=== PATIENT | female | born 1970 | race Caucasian/White ===

== ENCOUNTER 2016-12-01 14:27 | Emergency (ER) | payer MEDICARE, OTHER ==
[~2016-12-01 14:27] MED LIST: COREG 3.125M3.125 MG PO; LANTUS100 UNIT/1 SQ; LEVOTHYROXINE75 MCG PO; LIPITOR TAB 2020 MG PO; NORVASC 5 MG TAB5 MG PO; NOVOLOG 10100 UNITS/ SQ; OMEPRAZOLE20 M1 PO
[2016-12-01 16:21] LABS: RED BLOOD COUNT 3.62 M/UL (4.00-5.10); WHITE BLOOD COUNT 12.3 K/UL (4.5-11.0)
[2017-05-26] MEDS ORDERED: SENNA8.6 MG PO (11:03)
[2017-05-26] MEDS ORDERED: FERROUS SULFAT325 M2 PO (11:03)
[2017-05-26] MEDS ORDERED: ZANTAC 150 MG150 MG PO (11:06)
[2017-05-26] MEDS ORDERED: ZOFRAN4 MG PO (11:06)
[2017-05-26] MEDS ORDERED: ASPIRIN CHEWABL81 MG PO (11:07)
[2017-05-26] MEDS ORDERED: RENVELA800 MG PO (11:07)
[2017-05-26] MEDS ORDERED: TUMS/TITRALAC500 MG PO (11:08)
[2017-05-26] MEDS ORDERED: ATIVAN0.5 MG PO (11:09)
[2017-05-26] MEDS ORDERED: LORTAB 5-325 M1 EACH PO (11:10)
[2017-05-26] MEDS ORDERED: CLARITIN10 M2 PO (11:10)
[2017-05-26] MEDS ORDERED: MONTELUKAST SOD10 MG PO (11:12)
[2017-05-27] MEDS ORDERED: PROCRIT10000 UNIT INJ (14:32)
[2017-05-27] MEDS ORDERED: EMLA 30 GRAM TUB1 EA EXT (14:37)
== END 2016-12-01 17:45 | disposition home or self-care (01) ==
LOC: ER1 14:27
PROVIDERS: Physician Assistant
DX: I95.1 Orthostatic hypotension (principal); E11.22 Type 2 diabetes mellitus with diabetic chronic kidney disease; E07.9 Disorder of thyroid, unspecified; N18.9 Chronic kidney disease, unspecified; Z99.2 Dependence on renal dialysis; Z79.4 Long term (current) use of insulin; Z79.891 Long term (current) use of opiate analgesic; Z79.899 Other long term (current) drug therapy
CPT/HCPCS: 36415; 70450; 80053; 84484; 85025; 93005; 99285

== ENCOUNTER 2020-09-20 17:54 | Inpatient (IN) | payer MEDICARE, OTHER ==
[~2020-09-20] VITALS: Ht 157.5 cm; Wt 86.2 kg
[~2020-09-20 17:54] MED LIST changes: +AMOXICILLIN500 MG PO; +ASPIRIN CHEWABL81 MG PO; +ATIVAN0.5 MG PO; +CATAPRES0.3 MG PO; +CEFUROXIME500 MG PO; +CLARITIN10 M2 PO; +COZAAR50 MG PO; +EMLA 30 GRAM TUB1 EA EXT; +FERROUS SULFAT325 M2 PO; +LORTAB 5-325 M1 EACH PO; +MONTELUKAST SOD10 MG PO; +PRINIVIL20 MG PO; +PROCRIT10000 UNIT INJ; +RENVELA800 MG PO; +SENNA8.6 MG PO; +TRAZODONE HCL50 MG PO; +TUMS/TITRALAC500 MG PO; +ZANTAC 150 MG150 MG PO; +ZOFRAN ODT 4 MG4 MG SL; +ZOFRAN4 MG PO
[2020-09-20 19:55] LABS: BUN/CREATININE RATIO 6 (0-10)
[2020-09-20 20:15] LABS: HEMOGLOBIN 8.6 gm/dl (12.3-15.3); RED BLOOD COUNT 2.75 M/UL (4.00-5.10); WHITE BLOOD COUNT 7.6 K/UL (4.5-11.0)
[2020-09-20] MEDS ORDERED: ASPIRIN CHEWABL81 MG PO (22:35)
[2020-09-20] MEDS ORDERED: FEOSOL325 MG PO (22:36)
[2020-09-20] MEDS ORDERED: PLAVIX75 MG PO (22:37)
[2020-09-20] MEDS ORDERED: ACID REDUCER20 MG PO (22:39)
[2020-09-20] MEDS ORDERED: HYDRALAZINE HC100 MG PO (22:40)
[2020-09-22 05:27] LABS: HEMOGLOBIN 8.4 gm/dl (12.3-15.3); RED BLOOD COUNT 2.65 M/UL (4.00-5.10)
[2020-09-22 05:29] LABS: WHITE BLOOD COUNT 11.2 K/UL (4.5-11.0)
[2020-09-23 06:59] LABS: HEMOGLOBIN 8.2 gm/dl (12.3-15.3); RED BLOOD COUNT 2.61 M/UL (4.00-5.10); WHITE BLOOD COUNT 11.8 K/UL (4.5-11.0)
[2020-09-24 05:22] LABS: HEMOGLOBIN 8.2 gm/dl (12.3-15.3); RED BLOOD COUNT 2.62 M/UL (4.00-5.10); WHITE BLOOD COUNT 10.5 K/UL (4.5-11.0)
[2020-09-25 06:44] LABS: HEMOGLOBIN 8.5 gm/dl (12.3-15.3); RED BLOOD COUNT 2.74 M/UL (4.00-5.10); WHITE BLOOD COUNT 9.5 K/UL (4.5-11.0)
[2020-09-26 03:36] LABS: HEMOGLOBIN 8.6 gm/dl (12.3-15.3); RED BLOOD COUNT 2.79 M/UL (4.00-5.10); WHITE BLOOD COUNT 9.5 K/UL (4.5-11.0)
[2020-09-27 04:01] LABS: HEMOGLOBIN 8.9 gm/dl (12.3-15.3); RED BLOOD COUNT 2.88 M/UL (4.00-5.10); WHITE BLOOD COUNT 11.1 K/UL (4.5-11.0)
[2020-09-27] MEDS ORDERED: LEVOFLOXACIN250 MG PO (10:38)
[2020-09-27] MEDS ORDERED: DECADRON6 MG PO (10:47)
== END 2020-09-27 15:20 | disposition home or self-care (01) | DRG 177 ==
LOC: ER1 17:54 → CDU 21:30 → M/S 09-22 11:22
PROVIDERS: Family Medicine; Internal Medicine; ADMIT Internal Medicine
PROC: 8E0ZXY6 Isolation (ICD-10-PCS; principal; 2020-09-20)
PROC: XW13325 Transfusion of Convalescent Plasma (Nonautologous) into Peripheral Vein, Percutaneous Approach, New Technology Group 5 (ICD-10-PCS; 2020-09-21)
PROC: 5A1D70Z Performance of Urinary Filtration, Intermittent, Less than 6 Hours Per Day (ICD-10-PCS; 2020-09-22)
PROC: XW033E5 Introduction of Remdesivir Anti-infective into Peripheral Vein, Percutaneous Approach, New Technology Group 5 (ICD-10-PCS; 2020-09-23)
PROC: 5A1D70Z Performance of Urinary Filtration, Intermittent, Less than 6 Hours Per Day (ICD-10-PCS; 2020-09-25)
PROC: 5A1D70Z Performance of Urinary Filtration, Intermittent, Less than 6 Hours Per Day (ICD-10-PCS; 2020-09-27)
DX: U07.1 COVID-19 (principal); J12.89 Other viral pneumonia; N18.6 End stage renal disease; J15.9 Unspecified bacterial pneumonia; I12.0 Hypertensive chronic kidney disease with stage 5 chronic kidney disease or end stage renal disease; J96.10 Chronic respiratory failure, unspecified whether with hypoxia or hypercapnia; Z95.5 Presence of coronary angioplasty implant and graft; Z99.2 Dependence on renal dialysis; Z99.81 Dependence on supplemental oxygen; Z79.4 Long term (current) use of insulin; E78.5 Hyperlipidemia, unspecified; I25.10 Atherosclerotic heart disease of native coronary artery without angina pectoris; E11.22 Type 2 diabetes mellitus with diabetic chronic kidney disease; G47.33 Obstructive sleep apnea (adult) (pediatric); D69.6 Thrombocytopenia, unspecified; D64.9 Anemia, unspecified; E11.21 Type 2 diabetes mellitus with diabetic nephropathy; E03.9 Hypothyroidism, unspecified; K21.9 Gastro-esophageal reflux disease without esophagitis; E87.5 Hyperkalemia; R53.81 Other malaise
CPT/HCPCS: 36415; 36600; 71045; 80053; 80202; 82550; 82553; 82803; 82962; 83605; 83874; 83880; 84484; 85025; 85027; 86140; 86900; 86901; 86927; 87040; 90935; 90937; 96365; 96366; 96372; 96375; 96376; 99285; G0378; J0456; J0696; J1100; J1644; J2185; J3370; J7030; J7070

== ENCOUNTER 2020-10-20 19:57 | Emergency (ER) | payer MEDICARE, OTHER ==
[~2020-10-20 19:57] MED LIST changes: +ACID REDUCER20 MG PO; +DECADRON6 MG PO; +FEOSOL325 MG PO; +HYDRALAZINE HC100 MG PO; +LEVOFLOXACIN250 MG PO; +PLAVIX75 MG PO
== END 2020-10-20 20:05 | disposition left against medical advice (07) ==
LOC: ER1 19:57
DX: R09.02 Hypoxemia (principal); Z53.21 Procedure and treatment not carried out due to patient leaving prior to being seen by health care provider

== ENCOUNTER 2020-10-23 20:48 | Emergency (ER) | payer MEDICARE, OTHER | END 2020-10-23 21:41 | disposition left against medical advice (07) | LOC: ER1 20:48 | DX: R06.02 Shortness of breath (principal); Z53.21 Procedure and treatment not carried out due to patient leaving prior to being seen by health care provider ==

== ENCOUNTER → 2020-11-18 | Outpatient (CLI) | payer MEDICARE, OTHER | LOC: EROP 10:59 | PROVIDERS: Emergency Medicine | DX: E11.22 Type 2 diabetes mellitus with diabetic chronic kidney disease (principal); N18.9 Chronic kidney disease, unspecified; D63.1 Anemia in chronic kidney disease; E03.8 Other specified hypothyroidism; E11.42 Type 2 diabetes mellitus with diabetic polyneuropathy; E11.65 Type 2 diabetes mellitus with hyperglycemia; E11.69 Type 2 diabetes mellitus with other specified complication; E78.2 Mixed hyperlipidemia; F33.1 Major depressive disorder, recurrent, moderate; F41.1 Generalized anxiety disorder | CPT/HCPCS: 36415; 80053; 83036 ==

== ENCOUNTER → 2021-01-25 | Outpatient (CLI) | payer MEDICARE, OTHER | LOC: CT 09:30 | DX: R06.00 Dyspnea, unspecified (principal); I12.0 Hypertensive chronic kidney disease with stage 5 chronic kidney disease or end stage renal disease; N18.6 End stage renal disease; Z86.16 Personal history of COVID-19; R91.1 Solitary pulmonary nodule; J98.11 Atelectasis; J90 Pleural effusion, not elsewhere classified; I07.1 Rheumatic tricuspid insufficiency; Z76.82 Awaiting organ transplant status | CPT/HCPCS: ECHO; 71250; 93306 ==

== ENCOUNTER → 2021-03-29 | Outpatient (CLI) | payer MEDICARE, OTHER ==
[2021-03-29 14:05] LABS: RED BLOOD COUNT 3.62 M/UL (4.00-5.10); WHITE BLOOD COUNT 6.4 K/UL (4.5-11.0)
== END ==
LOC: LAB 13:43
PROVIDERS: Internal Medicine Cardiovascular Disease
DX: M79.81 Nontraumatic hematoma of soft tissue (principal)
CPT/HCPCS: 36415; 85025

== ENCOUNTER → 2021-04-05 | Outpatient (CLI) | payer MEDICARE, OTHER ==
[2021-04-05 16:30] LABS: RED BLOOD COUNT 3.28 M/UL (4.00-5.10); WHITE BLOOD COUNT 6.5 K/UL (4.5-11.0)
== END ==
LOC: LAB 14:10
PROVIDERS: Nurse Practitioner Family
DX: M79.81 Nontraumatic hematoma of soft tissue (principal)
CPT/HCPCS: 36415; 85025

== ENCOUNTER → 2021-04-19 | Outpatient (CLI) | payer MEDICARE, OTHER | LOC: MAMO 03-28 14:00 | DX: Z12.31 Encounter for screening mammogram for malignant neoplasm of breast (principal) | CPT/HCPCS: 77063; 77067 ==

== ENCOUNTER 2021-05-17 15:46 | Emergency (ER) | payer MEDICARE, OTHER ==
[2021-05-17 16:29] LABS: HEMOGLOBIN 11.2 gm/dl (12.3-15.3); RED BLOOD COUNT 3.49 M/UL (4.00-5.10); WHITE BLOOD COUNT 6.5 K/UL (4.5-11.0)
== END 2021-05-17 19:40 | disposition home or self-care (01) ==
LOC: ER1 15:46
PROVIDERS: Physician Assistant
DX: E87.5 Hyperkalemia (principal); I12.9 Hypertensive chronic kidney disease with stage 1 through stage 4 chronic kidney disease, or unspecified chronic kidney disease; E11.22 Type 2 diabetes mellitus with diabetic chronic kidney disease; N18.9 Chronic kidney disease, unspecified; Z99.2 Dependence on renal dialysis
CPT/HCPCS: 36415; 80053; 80061; 83036; 84443; 84550; 85025; 96374; 96375; 99284

== ENCOUNTER 2021-08-04 20:00 | Emergency (ER) | payer MEDICARE, OTHER ==
[2021-08-04 21:49] LABS: HEMOGLOBIN 7.6 gm/dl (12.3-15.3); RED BLOOD COUNT 2.43 M/UL (4.00-5.10); WHITE BLOOD COUNT 9.5 K/UL (4.5-11.0)
[2021-08-04 22:25] LABS: BUN/CREATININE RATIO 29 (0-10)
== END 2021-08-04 23:50 | disposition home or self-care (01) ==
LOC: ER1 20:00
PROVIDERS: Family Medicine
DX: D64.9 Anemia, unspecified (principal); E11.65 Type 2 diabetes mellitus with hyperglycemia; N28.9 Disorder of kidney and ureter, unspecified; E78.5 Hyperlipidemia, unspecified; G47.33 Obstructive sleep apnea (adult) (pediatric); I10 Essential (primary) hypertension; Z94.0 Kidney transplant status; Z99.81 Dependence on supplemental oxygen
CPT/HCPCS: 36600; 71045; 80053; 82550; 82553; 82803; 83874; 83880; 84484; 85025; 93005; 99285

== ENCOUNTER 2021-08-31 15:14 | Emergency (ER) | payer MEDICARE, OTHER ==
[2021-08-31 15:56] LABS: HEMOGLOBIN 9.9 gm/dl (12.3-15.3); RED BLOOD COUNT 3.17 M/UL (4.00-5.10); WHITE BLOOD COUNT 7.9 K/UL (4.5-11.0)
[2021-08-31 16:27] LABS: BUN/CREATININE RATIO 19 (0-10)
[2021-09-01] MEDS ORDERED: OMNICEF 300 MG300 MG PO (00:14)
== END 2021-09-01 09:03 | disposition short-term general hospital (02) ==
LOC: ER1 15:14
PROVIDERS: Physician Assistant
DX: T86.19 Other complication of kidney transplant (principal); N00.9 Acute nephritic syndrome with unspecified morphologic changes; E78.5 Hyperlipidemia, unspecified; E11.9 Type 2 diabetes mellitus without complications; I10 Essential (primary) hypertension
CPT/HCPCS: 74018; 80053; 81001; 82550; 82553; 83874; 84484; 85025; 93005; 96365; 96366; 96375; 96376; 99284; J0696; J1100; J2405; J2550; J2765; J7517

== ENCOUNTER → 2021-09-06 | Outpatient (CLI) | payer MEDICARE, OTHER ==
[~2021-09-06] MED LIST changes: +OMNICEF 300 MG300 MG PO
== END ==
LOC: KOH-I 15:42
DX: M54.50 Low back pain, unspecified (principal); R53.83 Other fatigue; N18.6 End stage renal disease; E87.5 Hyperkalemia; M47.816 Spondylosis without myelopathy or radiculopathy, lumbar region
CPT/HCPCS: 72100

== ENCOUNTER → 2021-10-29 | Outpatient (CLI) | payer MEDICARE, OTHER ==
[2021-10-29 10:43] LABS: RED BLOOD COUNT 3.56 M/UL (4.00-5.10); WHITE BLOOD COUNT 2.3 K/UL (4.5-11.0)
[2021-10-30 14:11] LABS: TACROLIMUS BY IMMUNOASSAY 15.5 ng/mL (2.0-20.0)
[2021-10-31 15:14] LABS: CMV QUANT DNA PCR (PLASMA) Negative (Negative)
== END ==
LOC: LAB 09:41
PROVIDERS: Nurse Practitioner
DX: R39.9 Unspecified symptoms and signs involving the genitourinary system (principal); D64.9 Anemia, unspecified; R79.89 Other specified abnormal findings of blood chemistry; Z94.0 Kidney transplant status; D84.9 Immunodeficiency, unspecified; Z51.81 Encounter for therapeutic drug level monitoring; Z79.899 Other long term (current) drug therapy
CPT/HCPCS: 36415; 80197; 82570; 83735; 84100; 84156; 85025; 87086; 87497; 87799

== ENCOUNTER → 2021-11-06 | Outpatient (CLI) | payer MEDICARE, OTHER | LOC: EMI 09:40 | DX: M51.26 Other intervertebral disc displacement, lumbar region (principal); M51.27 Other intervertebral disc displacement, lumbosacral region | CPT/HCPCS: 72148 ==

== ENCOUNTER → 2021-11-19 | Outpatient (CLI) | payer MEDICARE, OTHER ==
[2021-11-19 12:07] LABS: RED BLOOD COUNT 3.56 M/UL (4.00-5.10); WHITE BLOOD COUNT 1.9 K/UL (4.5-11.0)
[2021-11-19 12:29] LABS: BUN/CREATININE RATIO 16 (0-10)
== END ==
LOC: LAB 10:16
PROVIDERS: Internal Medicine Nephrology
DX: D64.9 Anemia, unspecified (principal); R39.9 Unspecified symptoms and signs involving the genitourinary system; Z94.0 Kidney transplant status; R79.89 Other specified abnormal findings of blood chemistry
CPT/HCPCS: 36415; 80069; 80197; 82570; 83735; 84156; 85025; 87086

== ENCOUNTER → 2021-12-28 | Outpatient (CLI) | payer MEDICARE, OTHER ==
[2021-12-28 09:39] LABS: HEMOGLOBIN 10.7 gm/dl (12.3-15.3); RED BLOOD COUNT 3.48 M/UL (4.00-5.10); WHITE BLOOD COUNT 2.4 K/UL (4.5-11.0)
[2021-12-28 10:19] LABS: BUN/CREATININE RATIO 19 (0-10)
[2021-12-31 15:11] LABS: CMV QUANT DNA PCR (PLASMA) Negative (Negative)
== END ==
LOC: LAB 08:50
PROVIDERS: Internal Medicine Nephrology
DX: D64.9 Anemia, unspecified (principal); R79.89 Other specified abnormal findings of blood chemistry; Z94.0 Kidney transplant status; R39.9 Unspecified symptoms and signs involving the genitourinary system; D84.9 Immunodeficiency, unspecified
CPT/HCPCS: 36415; 80069; 80197; 82570; 83735; 84156; 85025; 87086; 87497; 87799

== ENCOUNTER → 2022-01-18 | Outpatient (CLI) | payer MEDICARE, OTHER ==
[2022-01-18 09:58] LABS: HEMOGLOBIN 11.8 gm/dl (12.3-15.3); RED BLOOD COUNT 3.81 M/UL (4.00-5.10); WHITE BLOOD COUNT 3.4 K/UL (4.5-11.0)
[2022-01-18 10:33] LABS: BUN/CREATININE RATIO 18 (0-10)
[2022-01-20 15:12] LABS: CMV QUANT DNA PCR (PLASMA) Negative (Negative)
[2022-01-21 13:09] LABS: TACROLIMUS BY IMMUNOASSAY 15.3 ng/mL (2.0-20.0)
== END ==
LOC: LAB 09:13
PROVIDERS: Internal Medicine Nephrology
DX: R39.9 Unspecified symptoms and signs involving the genitourinary system (principal); D64.9 Anemia, unspecified; R79.89 Other specified abnormal findings of blood chemistry; Z94.0 Kidney transplant status; D84.9 Immunodeficiency, unspecified; Z51.81 Encounter for therapeutic drug level monitoring; Z79.899 Other long term (current) drug therapy
CPT/HCPCS: 36415; 80069; 80197; 81001; 82570; 83735; 84156; 85025; 87077; 87086; 87186; 87497; 87799

== ENCOUNTER → 2022-02-15 | Outpatient (CLI) | payer MEDICARE, OTHER ==
[2022-02-15 10:10] LABS: RED BLOOD COUNT 3.86 M/UL (4.00-5.10); WHITE BLOOD COUNT 3.7 K/UL (4.5-11.0)
[2022-02-15 10:49] LABS: BUN/CREATININE RATIO 18 (0-10)
[2022-02-18 15:11] LABS: TACROLIMUS BY IMMUNOASSAY 14.9 ng/mL (2.0-20.0)
[2022-02-18 17:11] LABS: BK QUANTITATION PCR Negative (Negative); CMV QUANT DNA PCR (PLASMA) Positive < 200 IU/mL (Negative)
== END ==
LOC: LAB 09:26
PROVIDERS: Internal Medicine Nephrology
DX: Z48.22 Encounter for aftercare following kidney transplant (principal); Z51.81 Encounter for therapeutic drug level monitoring; D84.9 Immunodeficiency, unspecified; R79.89 Other specified abnormal findings of blood chemistry; R39.9 Unspecified symptoms and signs involving the genitourinary system; D64.9 Anemia, unspecified; Z79.899 Other long term (current) drug therapy; Z94.0 Kidney transplant status
CPT/HCPCS: 36415; 80069; 80197; 82570; 83735; 84156; 85025; 87077; 87086; 87186; 87497; 87799

== ENCOUNTER → 2022-03-21 | Outpatient (CLI) | payer MEDICARE, OTHER ==
[~2022-03-21] MED LIST changes: +ZANAFLEX4 M1 PO
[2022-03-21 09:47] LABS: HEMOGLOBIN 12.6 gm/dl (12.3-15.3); RED BLOOD COUNT 4.13 M/UL (4.00-5.10); WHITE BLOOD COUNT 4.2 K/UL (4.5-11.0)
[2022-03-21 10:09] LABS: BUN/CREATININE RATIO 20 (0-10)
[2022-03-22 15:11] LABS: TACROLIMUS BY IMMUNOASSAY 9.4 ng/mL (2.0-20.0)
[2022-03-23 16:09] LABS: LOG10 CMV QN DNA PL 2.714 (.)
[2022-03-24 08:13] LABS: BK QUANTITATION PCR Negative (Negative)
== END ==
LOC: LAB 08:29
PROVIDERS: Internal Medicine
DX: R39.9 Unspecified symptoms and signs involving the genitourinary system (principal); D64.9 Anemia, unspecified; R79.89 Other specified abnormal findings of blood chemistry; Z94.0 Kidney transplant status; D84.9 Immunodeficiency, unspecified; Z51.81 Encounter for therapeutic drug level monitoring; Z79.899 Other long term (current) drug therapy
CPT/HCPCS: 36415; 80069; 80197; 81001; 82570; 83735; 84156; 85025; 87077; 87086; 87186; 87497; 87799

== ENCOUNTER → 2022-04-23 | Outpatient (CLI) | payer MEDICARE, OTHER ==
[2022-04-23 09:43] LABS: RED BLOOD COUNT 3.93 M/UL (4.00-5.10); WHITE BLOOD COUNT 4.9 K/UL (4.5-11.0)
[2022-04-23 10:15] LABS: BUN/CREATININE RATIO 22 (0-10)
[2022-04-25 13:09] LABS: CMV QUANT DNA PCR (PLASMA) Positive < 200 IU/mL (Negative)
== END ==
LOC: LAB 09:00
PROVIDERS: Pediatrics Pediatric Nephrology
DX: R39.9 Unspecified symptoms and signs involving the genitourinary system (principal); R79.89 Other specified abnormal findings of blood chemistry; D64.9 Anemia, unspecified; D84.9 Immunodeficiency, unspecified; Z94.0 Kidney transplant status; Z51.81 Encounter for therapeutic drug level monitoring; Z79.899 Other long term (current) drug therapy
CPT/HCPCS: 36415; 80069; 80197; 82570; 83735; 84156; 85025; 87077; 87086; 87186; 87497; 87799

== ENCOUNTER → 2022-05-23 | Outpatient (CLI) | payer MEDICARE, OTHER | LOC: LAB 08:15 | DX: Z48.22 Encounter for aftercare following kidney transplant (principal); Z51.81 Encounter for therapeutic drug level monitoring; Z79.899 Other long term (current) drug therapy; Z94.0 Kidney transplant status; R39.9 Unspecified symptoms and signs involving the genitourinary system; R79.89 Other specified abnormal findings of blood chemistry; D64.9 Anemia, unspecified; M46.1 Sacroiliitis, not elsewhere classified | CPT/HCPCS: 36415; 73522; 80197 ==

== ENCOUNTER → 2022-06-13 | Outpatient (CLI) | payer MEDICARE, OTHER ==
[2022-06-13 08:24] LABS: HEMOGLOBIN 12.5 gm/dl (12.3-15.3); RED BLOOD COUNT 4.05 M/UL (4.00-5.10); WHITE BLOOD COUNT 6.1 K/UL (4.5-11.0)
[2022-06-13 08:53] LABS: BUN/CREATININE RATIO 22 (0-10)
[2022-06-14 14:11] LABS: TACROLIMUS BY IMMUNOASSAY 5.7 ng/mL (2.0-20.0)
[2022-06-15 18:11] LABS: BK QUANTITATION PCR Negative (Negative); CMV QUANT DNA PCR (PLASMA) Negative (Negative)
== END ==
LOC: LAB 07:26
PROVIDERS: Internal Medicine Nephrology
DX: Z48.22 Encounter for aftercare following kidney transplant (principal); Z51.81 Encounter for therapeutic drug level monitoring; D84.9 Immunodeficiency, unspecified; R39.9 Unspecified symptoms and signs involving the genitourinary system; R79.89 Other specified abnormal findings of blood chemistry; D64.9 Anemia, unspecified; Z94.0 Kidney transplant status; Z78.0 Asymptomatic menopausal state; Z79.899 Other long term (current) drug therapy
CPT/HCPCS: 36415; 80069; 80197; 82570; 83735; 84156; 85025; 87077; 87086; 87186; 87497; 87799